=== PATIENT | male | born 1995 | race Caucasian/White ===

== ENCOUNTER 2017-09-15 17:47 | Inpatient (IN) | payer OTHER ==
[2017-09-15] MEDS ORDERED: IBUPROFEN 400 MG TAB PO (21:57)
[2017-09-15] MEDS: SOD CHLORIDE 0.9% 1,000 ML IV (22:00)
[2017-09-15] MEDS: ACETAMINOPHEN 500 MG TAB PO (23:05)
[2017-09-15] MEDS: IBUPROFEN 600 MG TAB PO (23:20)
[2017-09-15 23:42] LABS: ADD MAN DIFF? NO
[2017-09-15 23:44] LABS: WHITE BLOOD COUNT 7.9 10^3/ul (4.8-10.8)
[2017-09-15 23:44] LABS: BASOPHILS % 0.4 % (0.0-2.0); EOSINOPHILS % 0.3 % (0.0-7.0); HEMATOCRIT 36.1 % (42.0-52.0); HEMOGLOBIN 12.1 g/dl (14.0-18.0); LYMPHOCYTES # 1.1 10^3/ul (0.8-2.9); LYMPHOCYTES % 13.6 % (15.0-51.0); MEAN CORPUSCULAR HEMOGLOBIN 26.2 pg (29.0-33.0); MEAN CORPUSCULAR HGB CONC 33.5 g/dl (32.0-37.0); MEAN CORPUSCULAR VOLUME 78.3 fl (82.0-101.0); MEAN PLATELET VOLUME 9.2 fl (7.4-10.4); MONOCYTE # 0.5 10^3/ul (0.3-0.9); MONOCYTES % 6.6 % (0.0-11.0); NEUTROPHIL # 6.2 10^3/ul (1.6-7.5); NEUTROPHILS % 78.7 % (39.0-77.0); PLATELET COUNT 334 10^3/UL (140-415); RED BLOOD COUNT 4.61 10^6/ul (4.70-6.10); RED CELL DISTRIBUTION WIDTH 12.8 % (11.5-14.5)
[2017-09-16] LABS: ALANINE AMINOTRANSFERASE 123 IU/L (13-69); ALBUMIN 3.4 g/dl (3.3-4.9); ALKALINE PHOSPHATASE 103 IU/L (42-121); ANION GAP 14 (8-16); ASPARTATE AMINO TRANSFERASE 92 IU/L (15-46); BLOOD UREA NITROGEN 12 mg/dl (7-20); CALCIUM 8.6 mg/dl (8.4-10.2); CARBON DIOXIDE 25 mmol/L (21-31); CHLORIDE 99 mmol/L (97-110); GLUCOSE 94 mg/dl (70-220); LIPASE 133 U/L (23-300); POTASSIUM 3.9 mmol/L (3.5-5.1); SODIUM 134 mmol/L (135-144); TOTAL PROTEIN 7.6 g/dl (6.1-8.1)
[2017-09-16 00:01] LABS: BILIRUBIN,INDIRECT 0.3 mg/dl (0-1.1); BILIRUBIN,TOTAL 0.3 mg/dl (0.2-1.3)
[2017-09-16] MEDS: SOD CHLORIDE 0.9% 1,000 ML IV (00:17)
[2017-09-16] MEDS: LEVOFLOXACIN 750MG/D5W (PMX) 150 ML IVPB ×2 (00:24→23:35)
[2017-09-16] MEDS: KETOROLAC 30 MG INJ IV (01:26)
[2017-09-16] MEDS ORDERED: ALBUTEROL HFA 8 GM INHALER INH (02:00)
[2017-09-16] MEDS ORDERED: NACL 0.9% 3 ML SYG IV (02:00)
[2017-09-16 04:16] LABS: LACTIC ACID 0.8 mmol/L (0.5-2.0)
[2017-09-16] MEDS: SOD CHLORIDE 0.9% 500 ML IV (09:27)
[2017-09-16] MEDS ORDERED: VANCOMYCIN IV PER PHARMACY XX (11:00)
[2017-09-16] MEDS: VANCOMYCIN 1.25 GM in SOD CHLORIDE 0.9% 250 ML IVPB (13:07)
[2017-09-16] MEDS: NACL 3% FOR INHALATION 15 ML NEBU NEB (13:11)
[2017-09-16] MEDS: ACETAMINOPHEN 325 MG TAB PO (17:41)
[2017-09-16] MEDS: VANCOMYCIN 1 GM in NS 250 ML IVPB (21:49)
[2017-09-17] MEDS: VANCOMYCIN 1 GM in NS 250 ML IVPB ×2 (04:33→12:51)
[2017-09-17 05:44] LABS: ADD MAN DIFF? NO
[2017-09-17 05:49] LABS: WHITE BLOOD COUNT 7.4 10^3/ul (4.8-10.8)
[2017-09-17 05:49] LABS: BASOPHIL # 0.1 10^3/ul (0.0-0.1); BASOPHILS % 0.7 % (0.0-2.0); EOSINOPHILS # 0.1 10^3/ul (0.0-0.5); EOSINOPHILS % 0.8 % (0.0-7.0); HEMATOCRIT 36.8 % (42.0-52.0); HEMOGLOBIN 12.4 g/dl (14.0-18.0); LYMPHOCYTES # 0.7 10^3/ul (0.8-2.9); LYMPHOCYTES % 9.3 % (15.0-51.0); MEAN CORPUSCULAR HEMOGLOBIN 26.4 pg (29.0-33.0); MEAN CORPUSCULAR HGB CONC 33.7 g/dl (32.0-37.0); MEAN CORPUSCULAR VOLUME 78.3 fl (82.0-101.0); MEAN PLATELET VOLUME 9.3 fl (7.4-10.4); MONOCYTE # 0.7 10^3/ul (0.3-0.9); MONOCYTES % 9.7 % (0.0-11.0); NEUTROPHIL # 5.8 10^3/ul (1.6-7.5); PLATELET COUNT 333 10^3/UL (140-415); RED CELL DISTRIBUTION WIDTH 12.9 % (11.5-14.5)
[2017-09-17 06:53] LABS: ALANINE AMINOTRANSFERASE 98 IU/L (13-69); ALBUMIN/GLOBULIN RATIO 0.81; ALKALINE PHOSPHATASE 86 IU/L (42-121); ANION GAP 13 (8-16); ASPARTATE AMINO TRANSFERASE 70 IU/L (15-46); BILIRUBIN,INDIRECT 0.2 mg/dl (0-1.1); BILIRUBIN,TOTAL 0.2 mg/dl (0.2-1.3); BLOOD UREA NITROGEN 8 mg/dl (7-20); CALCIUM 8.6 mg/dl (8.4-10.2); CARBON DIOXIDE 27 mmol/L (21-31); CHLORIDE 102 mmol/L (97-110); CHOL/HDL RATIO 4.4 RATIO; CHOLESTEROL 112 mg/dl (100-200); CREATININE 0.98 mg/dl (0.61-1.24); GLUCOSE 93 mg/dl (70-220); HDL CHOLESTEROL 25 mg/dl (30-63); LDL CHOLESTEROL,CALCULATED 74 mg/dl; MAGNESIUM 1.5 mg/dl (1.7-2.5); POTASSIUM 4.2 mmol/L (3.5-5.1); SODIUM 138 mmol/L (135-144); TOTAL PROTEIN 6.7 g/dl (6.1-8.1); TRIGLYCERIDES 67 mg/dl (0-149)
[2017-09-17 08:24] LABS: HEMOGLOBIN A1C 5.5 % (0-5.9)
[2017-09-17] MEDS: ACETAMINOPHEN 325 MG TAB PO (08:33)
[2017-09-17] MEDS: ALBUTEROL 0.083% (NEB) 2.5 MG/3 ML AMP HHN ×4 (10:00→21:40)
[2017-09-17 12:30] LABS: HAAIG REFLEX REFLEX FILED
[2017-09-17 13:18] LABS: HEPATITIS B SURFACE ANTIGEN NEGATIVE (NEGATIVE)
[2017-09-17 13:34] LABS: ADD UMIC NO; UR ASCORBIC ACID NEGATIVE (NEGATIVE); UR BILIRUBIN (Dip) NEGATIVE (NEGATIVE); UR BLOOD (Dip) NEGATIVE (NEGATIVE); UR CLARITY CLEAR (CLEAR); UR COLOR COLORLESS (YELLOW); UR GLUCOSE (Dip) NEGATIVE (NEGATIVE); UR KETONES (Dip) NEGATIVE (NEGATIVE); UR LEUKOCYTE ESTERASE (Dip) NEGATIVE Leu/ul (NEGATIVE); UR NITRITE (Dip) NEGATIVE (NEGATIVE); UR SPECIFIC GRAVITY (Dip) 1.003 (1.003-1.030); UR TOTAL PROTEIN (Dip) NEGATIVE (NEGATIVE); UR UROBILINOGEN (Dip) NEGATIVE (NEGATIVE)
[2017-09-17 13:36] LABS: HEPATITIS B CORE ANTIBODY NEGATIVE (NEGATIVE); HEPATITIS C VIRAL ANTIBODY NEGATIVE (NEGATIVE)
[2017-09-17 13:41] LABS: HIV 1&2 ANTIBODY NEGATIVE (NEGATIVE)
[2017-09-17] MEDS: IOHEXOL 300MG/ML 150 ML BTL (14:40)
[2017-09-17] MEDS: SOD CHLORIDE 0.9% 100 ML (14:40)
[2017-09-17] MEDS: FLUCONAZOLE 200 MG/NS (PMX) 100 ML IVPB (15:39)
[2017-09-17] MEDS: VANCOMYCIN 1.25 GM in SOD CHLORIDE 0.9% 250 ML IVPB (19:55)
[2017-09-17] MEDS: NYSTATIN SUSP 5 ML CUP PO (22:18)
[2017-09-17] MEDS: LEVOFLOXACIN 750MG/D5W (PMX) 150 ML IVPB (23:16)
[2017-09-18] MEDS: ALBUTEROL 0.083% (NEB) 2.5 MG/3 ML AMP HHN ×6 (01:40→20:00)
[2017-09-18] MEDS: VANCOMYCIN 1.25 GM in SOD CHLORIDE 0.9% 250 ML IVPB ×2 (04:10→12:45)
[2017-09-18] MEDS ORDERED: FLUCONAZOLE 100 MG TAB PO (09:00)
[2017-09-18] MEDS: PYRAZINAMIDE 500 MG TAB PO (09:17)
[2017-09-18] MEDS: PYRIDOXINE 50 MG TAB PO (09:17)
[2017-09-18] MEDS: ISONIAZID 300 MG TAB PO (09:17)
[2017-09-18] MEDS: RIFABUTIN 150 MG CAP PO (09:17)
[2017-09-18] MEDS: NYSTATIN SUSP 5 ML CUP PO ×4 (09:17→20:56)
[2017-09-18] MEDS: ETHAMBUTOL 400 MG TAB PO (09:17)
[2017-09-18] MEDS: PIPER-TAZO 3.375 GM IV (PMX) 50 ML IVPB ×2 (17:30→23:59)
[2017-09-18 20:54] LABS: SITE Right Upper Forearm; TIME 2045
[2017-09-18] MEDS: LEVOFLOXACIN 750MG/D5W (PMX) 150 ML IVPB (20:55)
[2017-09-19] MEDS: ALBUTEROL 0.083% (NEB) 2.5 MG/3 ML AMP HHN ×6 (01:12→20:01)
[2017-09-19] MEDS: PIPER-TAZO 3.375 GM IV (PMX) 50 ML IVPB ×3 (05:55→17:04)
[2017-09-19 08:25] LABS: ANION GAP 17 (8-16); BLOOD UREA NITROGEN 11 mg/dl (7-20); CALCIUM 9.3 mg/dl (8.4-10.2); CARBON DIOXIDE 26 mmol/L (21-31); CHLORIDE 102 mmol/L (97-110); CREATININE 1.09 mg/dl (0.61-1.24); GLUCOSE 99 mg/dl (70-220); MAGNESIUM 1.6 mg/dl (1.7-2.5); POTASSIUM 4.3 mmol/L (3.5-5.1); SODIUM 141 mmol/L (135-144)
[2017-09-19] MEDS: ETHAMBUTOL 400 MG TAB PO (08:33)
[2017-09-19] MEDS: PYRIDOXINE 50 MG TAB PO (08:33)
[2017-09-19] MEDS: ISONIAZID 300 MG TAB PO (08:33)
[2017-09-19] MEDS: PYRAZINAMIDE 500 MG TAB PO (08:33)
[2017-09-19] MEDS: RIFABUTIN 150 MG CAP PO (08:33)
[2017-09-19] MEDS: NYSTATIN SUSP 5 ML CUP PO ×4 (08:33→20:40)
[2017-09-19 15:26] LABS: NIL 0.33 IU/mL; QUANTIFERON(R)-TB GOLD POSITIVE (NEGATIVE); TB-NIL 3.56 IU/mL
[2017-09-19] MEDS: MAGNESIUM OXIDE 400 MG TAB PO (18:57)
[2017-09-19] MEDS: LEVOFLOXACIN 750MG/D5W (PMX) 150 ML IVPB (20:40)
[2017-09-20] MEDS: PIPER-TAZO 3.375 GM IV (PMX) 50 ML IVPB ×4 (00:13→17:37)
[2017-09-20] MEDS: ALBUTEROL 0.083% (NEB) 2.5 MG/3 ML AMP HHN ×6 (00:51→20:00)
[2017-09-20 05:25] LABS: ANION GAP 16 (8-16); BLOOD UREA NITROGEN 13 mg/dl (7-20); CALCIUM 9.3 mg/dl (8.4-10.2); CARBON DIOXIDE 28 mmol/L (21-31); CHLORIDE 100 mmol/L (97-110); CREATININE 1.28 mg/dl (0.61-1.24); GLUCOSE 105 mg/dl (70-220); MAGNESIUM 1.9 mg/dl (1.7-2.5); POTASSIUM 4.5 mmol/L (3.5-5.1); SODIUM 139 mmol/L (135-144)
[2017-09-20] MEDS: RIFABUTIN 150 MG CAP PO (08:11)
[2017-09-20] MEDS: PYRIDOXINE 50 MG TAB PO (08:11)
[2017-09-20] MEDS: NYSTATIN SUSP 5 ML CUP PO ×4 (08:11→20:30)
[2017-09-20] MEDS: ISONIAZID 300 MG TAB PO (08:12)
[2017-09-20] MEDS: ETHAMBUTOL 400 MG TAB PO (08:12)
[2017-09-20] MEDS: PYRAZINAMIDE 500 MG TAB PO (08:12)
[2017-09-20 15:16] LABS: NIL 0.21 IU/mL; QUANTIFERON(R)-TB GOLD POSITIVE (NEGATIVE); TB-NIL 3.73 IU/mL
[2017-09-20] MEDS: LEVOFLOXACIN 750MG/D5W (PMX) 150 ML IVPB (20:30)
[2017-09-21] MEDS: PIPER-TAZO 3.375 GM IV (PMX) 50 ML IVPB ×5 (00:09→23:58)
[2017-09-21] MEDS: ALBUTEROL 0.083% (NEB) 2.5 MG/3 ML AMP HHN ×6 (00:59→20:00)
[2017-09-21] MEDS: ISONIAZID 300 MG TAB PO (08:48)
[2017-09-21] MEDS: NYSTATIN SUSP 5 ML CUP PO ×4 (08:48→20:48)
[2017-09-21] MEDS: LEVOFLOXACIN 750MG/D5W (PMX) 150 ML IVPB (20:48)
[2017-09-21 23:28] LABS: SEVENTY TWO HOUR READING 20 mm (0-9)
[2017-09-22] MEDS: ALBUTEROL 0.083% (NEB) 2.5 MG/3 ML AMP HHN ×6 (00:47→20:33)
[2017-09-22] MEDS: PIPER-TAZO 3.375 GM IV (PMX) 50 ML IVPB ×4 (05:26→23:55)
[2017-09-22 05:48] LABS: ADD MAN DIFF? NO
[2017-09-22 05:50] LABS: WHITE BLOOD COUNT 8.2 10^3/ul (4.8-10.8)
[2017-09-22 05:50] LABS: BASOPHIL # 0.1 10^3/ul (0.0-0.1); BASOPHILS % 0.9 % (0.0-2.0); EOSINOPHILS # 0.4 10^3/ul (0.0-0.5); EOSINOPHILS % 5.3 % (0.0-7.0); HEMATOCRIT 38.1 % (42.0-52.0); HEMOGLOBIN 12.4 g/dl (14.0-18.0); LYMPHOCYTES # 1.2 10^3/ul (0.8-2.9); LYMPHOCYTES % 14.9 % (15.0-51.0); MEAN CORPUSCULAR HEMOGLOBIN 26.4 pg (29.0-33.0); MEAN CORPUSCULAR HGB CONC 32.5 g/dl (32.0-37.0); MEAN CORPUSCULAR VOLUME 81.1 fl (82.0-101.0); MEAN PLATELET VOLUME 8.9 fl (7.4-10.4); MONOCYTE # 0.6 10^3/ul (0.3-0.9); MONOCYTES % 7.3 % (0.0-11.0); NEUTROPHIL # 5.7 10^3/ul (1.6-7.5); NEUTROPHILS % 69.7 % (39.0-77.0); PLATELET COUNT 473 10^3/UL (140-415); RED CELL DISTRIBUTION WIDTH 12.9 % (11.5-14.5)
[2017-09-22 06:05] LABS: INR 1.13; PROTIME 14.7 Sec (11.9-14.9); PT RATIO 1.1
[2017-09-22 06:06] LABS: PARTIAL THROMBOPLASTIN TIME 31.5 Sec (25.0-35.0)
[2017-09-22 06:41] LABS: ANION GAP 16 (8-16); BLOOD UREA NITROGEN 10 mg/dl (7-20); CARBON DIOXIDE 26 mmol/L (21-31); CHLORIDE 104 mmol/L (97-110); CREATININE 1.04 mg/dl (0.61-1.24); GLUCOSE 91 mg/dl (70-220); MAGNESIUM 1.8 mg/dl (1.7-2.5); PHOSPHORUS 4.1 mg/dl (2.5-4.9); SODIUM 142 mmol/L (135-144)
[2017-09-22] MEDS: PYRAZINAMIDE 500 MG TAB PO ×2 (09:00→13:13)
[2017-09-22] MEDS: ISONIAZID 300 MG TAB PO ×2 (09:00→13:12)
[2017-09-22] MEDS: PYRIDOXINE 50 MG TAB PO ×2 (09:00→13:13)
[2017-09-22] MEDS: RIFAMPIN 300 MG CAP PO ×2 (09:00→13:13)
[2017-09-22] MEDS: ETHAMBUTOL 100 MG TAB PO ×2 (09:00→13:13)
[2017-09-22] MEDS: NYSTATIN SUSP 5 ML CUP PO ×4 (09:00→20:33)
[2017-09-22] MEDS ORDERED: LIDOCAINE 1% (MPF) 30 ML INJ (09:59)
[2017-09-22] MEDS ORDERED: LIDOCAINE 2% (SDV) 5 ML INJ (10:19)
[2017-09-22] MEDS ORDERED: ROCURONIUM 50 MG INJ (10:19)
[2017-09-22] MEDS ORDERED: SUCCINYLCHOLINE CHLORIDE 100 MG/5 ML SYG IV (10:19)
[2017-09-22] MEDS ORDERED: PROPOFOL 20 ML (10:19)
[2017-09-22] MEDS ORDERED: METOCLOPRAMIDE 10 MG INJ IV (11:00)
[2017-09-22] MEDS ORDERED: ONDANSETRON 4 MG INJ IV (11:00)
[2017-09-22] MEDS ORDERED: FENTAnyl 50 MCG/ML VIAL IV ×2 (11:00)
[2017-09-22] MEDS ORDERED: DIPHENHYDRAMINE 50 MG INJ IV (11:00)
[2017-09-22] MEDS ORDERED: OXYCODONE/ACETAMINOPHEN (5/325) TAB PO ×2 (11:00)
[2017-09-22] MEDS ORDERED: MEPERIDINE 25 MG INJ IV (11:00)
[2017-09-22] MEDS ORDERED: MIDAZOLAM 1 MG/ML 2 ML INJ IV (11:00)
[2017-09-22] MEDS: FENTAnyl 50 MCG/ML VIAL IV (11:15)
[2017-09-22] MEDS: LEVOFLOXACIN 750MG/D5W (PMX) 150 ML IVPB (20:32)
[2017-09-23] MEDS: ALBUTEROL 0.083% (NEB) 2.5 MG/3 ML AMP HHN ×7 (00:33→21:00)
[2017-09-23] MEDS: PIPER-TAZO 3.375 GM IV (PMX) 50 ML IVPB ×4 (06:02→23:25)
[2017-09-23] MEDS: RIFAMPIN 300 MG CAP PO (08:47)
[2017-09-23] MEDS: PYRAZINAMIDE 500 MG TAB PO (08:47)
[2017-09-23] MEDS: PYRIDOXINE 50 MG TAB PO (08:47)
[2017-09-23] MEDS: NYSTATIN SUSP 5 ML CUP PO ×4 (08:48→21:05)
[2017-09-23] MEDS: ETHAMBUTOL 400 MG TAB PO (08:48)
[2017-09-23] MEDS: ISONIAZID 300 MG TAB PO (08:48)
[2017-09-23] MEDS: LEVOFLOXACIN 750MG/D5W (PMX) 150 ML IVPB (21:05)
[2017-09-24] MEDS: ALBUTEROL 0.083% (NEB) 2.5 MG/3 ML AMP HHN ×6 (00:46→21:10)
[2017-09-24] MEDS: PIPER-TAZO 3.375 GM IV (PMX) 50 ML IVPB ×3 (05:24→17:37)
[2017-09-24] MEDS: NYSTATIN SUSP 5 ML CUP PO ×4 (08:21→20:18)
[2017-09-24] MEDS: RIFAMPIN 300 MG CAP PO (08:21)
[2017-09-24] MEDS: ETHAMBUTOL 400 MG TAB PO (08:21)
[2017-09-24] MEDS: PYRIDOXINE 50 MG TAB PO (08:21)
[2017-09-24] MEDS: PYRAZINAMIDE 500 MG TAB PO (08:21)
[2017-09-24] MEDS: ISONIAZID 300 MG TAB PO (12:55)
[2017-09-24] MEDS: LEVOFLOXACIN 750MG/D5W (PMX) 150 ML IVPB (20:20)
[2017-09-25] MEDS: PIPER-TAZO 3.375 GM IV (PMX) 50 ML IVPB ×2 (00:31→05:11)
[2017-09-25] MEDS: ALBUTEROL 0.083% (NEB) 2.5 MG/3 ML AMP HHN ×6 (01:54→21:37)
[2017-09-25] MEDS: NYSTATIN SUSP 5 ML CUP PO ×4 (08:26→20:33)
[2017-09-25] MEDS: PYRAZINAMIDE 500 MG TAB PO (08:26)
[2017-09-25] MEDS: RIFAMPIN 300 MG CAP PO (08:26)
[2017-09-25] MEDS: PYRIDOXINE 50 MG TAB PO (08:26)
[2017-09-25] MEDS: ISONIAZID 300 MG TAB PO (08:26)
[2017-09-25] MEDS: ETHAMBUTOL 400 MG TAB PO (08:27)
[2017-09-25 18:24] LABS: FORTY EIGHT HOUR READING 0 mm (0-9)
[2017-09-26] MEDS: ALBUTEROL 0.083% (NEB) 2.5 MG/3 ML AMP HHN ×6 (01:38→20:26)
[2017-09-26] MEDS: PYRAZINAMIDE 500 MG TAB PO (08:54)
[2017-09-26] MEDS: NYSTATIN SUSP 5 ML CUP PO ×4 (08:54→21:01)
[2017-09-26] MEDS: RIFAMPIN 300 MG CAP PO (08:54)
[2017-09-26] MEDS: PYRIDOXINE 50 MG TAB PO (08:54)
[2017-09-26] MEDS: ISONIAZID 300 MG TAB PO (08:54)
[2017-09-26] MEDS: ETHAMBUTOL 400 MG TAB PO (08:56)
[2017-09-27] MEDS: ALBUTEROL 0.083% (NEB) 2.5 MG/3 ML AMP HHN ×6 (00:25→21:06)
[2017-09-27] MEDS: ONDANSETRON 4 MG TAB PO ×3 (02:23→16:51)
[2017-09-27] MEDS: RIFAMPIN 300 MG CAP PO (08:56)
[2017-09-27] MEDS: PYRIDOXINE 50 MG TAB PO (08:56)
[2017-09-27] MEDS: PYRAZINAMIDE 500 MG TAB PO (08:57)
[2017-09-27] MEDS: NYSTATIN SUSP 5 ML CUP PO ×4 (08:57→20:32)
[2017-09-27] MEDS: ETHAMBUTOL 400 MG TAB PO (08:57)
[2017-09-27] MEDS: ISONIAZID 300 MG TAB PO (08:57)
[2017-09-27 14:47] LABS: ALANINE AMINOTRANSFERASE 197 IU/L (13-69); ALKALINE PHOSPHATASE 96 IU/L (42-121); ASPARTATE AMINO TRANSFERASE 245 IU/L (15-46); BILIRUBIN,INDIRECT 0.7 mg/dl (0-1.1); BILIRUBIN,TOTAL 0.7 mg/dl (0.2-1.3); TOTAL PROTEIN 8.3 g/dl (6.1-8.1)
[2017-09-27] MEDS ORDERED: CEPASTAT LOZENGE MT (16:00)
[2017-09-28] MEDS: ALBUTEROL 0.083% (NEB) 2.5 MG/3 ML AMP HHN ×6 (01:29→21:08)
[2017-09-28 05:12] LABS: ADD MAN DIFF? NO
[2017-09-28 05:16] LABS: BASOPHIL # 0.1 10^3/ul (0.0-0.1); BASOPHILS % 1.2 % (0.0-2.0); EOSINOPHILS # 0.1 10^3/ul (0.0-0.5); HEMATOCRIT 41.8 % (42.0-52.0); HEMOGLOBIN 13.7 g/dl (14.0-18.0); LYMPHOCYTES % 12.4 % (15.0-51.0); MEAN CORPUSCULAR HEMOGLOBIN 26.1 pg (29.0-33.0); MEAN CORPUSCULAR HGB CONC 32.8 g/dl (32.0-37.0); MEAN CORPUSCULAR VOLUME 79.6 fl (82.0-101.0); MEAN PLATELET VOLUME 8.5 fl (7.4-10.4); MONOCYTE # 0.8 10^3/ul (0.3-0.9); MONOCYTES % 9.9 % (0.0-11.0); NEUTROPHIL # 6.2 10^3/ul (1.6-7.5); NEUTROPHILS % 74.1 % (39.0-77.0); PLATELET COUNT 504 10^3/UL (140-415); RED BLOOD COUNT 5.25 10^6/ul (4.70-6.10); RED CELL DISTRIBUTION WIDTH 14.1 % (11.5-14.5)
[2017-09-28 05:16] LABS: WHITE BLOOD COUNT 8.3 10^3/ul (4.8-10.8)
[2017-09-28 05:38] LABS: ALANINE AMINOTRANSFERASE 307 IU/L (13-69); ALBUMIN/GLOBULIN RATIO 0.97; ALKALINE PHOSPHATASE 94 IU/L (42-121); ANION GAP 15 (8-16); ASPARTATE AMINO TRANSFERASE 462 IU/L (15-46); BILIRUBIN,INDIRECT 0.3 mg/dl (0-1.1); BILIRUBIN,TOTAL 0.3 mg/dl (0.2-1.3); BLOOD UREA NITROGEN 10 mg/dl (7-20); CALCIUM 9.3 mg/dl (8.4-10.2); CARBON DIOXIDE 28 mmol/L (21-31); CHLORIDE 101 mmol/L (97-110); GLUCOSE 91 mg/dl (70-220); MAGNESIUM 1.7 mg/dl (1.7-2.5); POTASSIUM 4.4 mmol/L (3.5-5.1); SODIUM 140 mmol/L (135-144); TOTAL PROTEIN 8.1 g/dl (6.1-8.1)
[2017-09-28] MEDS: ISONIAZID 300 MG TAB PO ×2 (09:00→14:26)
[2017-09-28] MEDS: ETHAMBUTOL 400 MG TAB PO ×2 (09:00→14:24)
[2017-09-28] MEDS: NYSTATIN SUSP 5 ML CUP PO ×4 (09:00→21:00)
[2017-09-28] MEDS: PYRIDOXINE 50 MG TAB PO ×2 (09:00→14:27)
[2017-09-28] MEDS: PYRAZINAMIDE 500 MG TAB PO ×2 (09:00→14:23)
[2017-09-28] MEDS: RIFAMPIN 300 MG CAP PO (09:00)
[2017-09-28] MEDS: ONDANSETRON 4 MG TAB PO (12:41)
[2017-09-28] MEDS ORDERED: LEVOFLOXACIN 750 MG TABLET PO (15:00)
[2017-09-29] MEDS: ALBUTEROL 0.083% (NEB) 2.5 MG/3 ML AMP HHN ×6 (01:05→20:29)
[2017-09-29] MEDS: LEVOFLOXACIN 750 MG TABLET PO (05:39)
[2017-09-29 09:06] LABS: ADD MAN DIFF? NO
[2017-09-29] MEDS: NYSTATIN SUSP 5 ML CUP PO ×4 (09:08→20:48)
[2017-09-29] MEDS: RIFAMPIN 300 MG CAP PO (09:08)
[2017-09-29] MEDS: PYRIDOXINE 50 MG TAB PO (09:08)
[2017-09-29] MEDS: ETHAMBUTOL 400 MG TAB PO (09:09)
[2017-09-29 09:10] LABS: WHITE BLOOD COUNT 6.3 10^3/ul (4.8-10.8)
[2017-09-29 09:11] LABS: BASOPHIL # 0.1 10^3/ul (0.0-0.1); EOSINOPHILS # 0.1 10^3/ul (0.0-0.5); EOSINOPHILS % 1.4 % (0.0-7.0); HEMATOCRIT 42.6 % (42.0-52.0); HEMOGLOBIN 13.8 g/dl (14.0-18.0); LYMPHOCYTES # 0.8 10^3/ul (0.8-2.9); LYMPHOCYTES % 13.3 % (15.0-51.0); MEAN CORPUSCULAR HEMOGLOBIN 26.5 pg (29.0-33.0); MEAN CORPUSCULAR HGB CONC 32.4 g/dl (32.0-37.0); MEAN CORPUSCULAR VOLUME 81.8 fl (82.0-101.0); MEAN PLATELET VOLUME 8.8 fl (7.4-10.4); MONOCYTE # 0.7 10^3/ul (0.3-0.9); MONOCYTES % 10.3 % (0.0-11.0); NEUTROPHIL # 4.6 10^3/ul (1.6-7.5); NEUTROPHILS % 72.6 % (39.0-77.0); PLATELET COUNT 469 10^3/UL (140-415); RED BLOOD COUNT 5.21 10^6/ul (4.70-6.10); RED CELL DISTRIBUTION WIDTH 14.4 % (11.5-14.5)
[2017-09-29 09:28] LABS: ALANINE AMINOTRANSFERASE 556 IU/L (13-69); ALBUMIN/GLOBULIN RATIO 0.97; ALKALINE PHOSPHATASE 132 IU/L (42-121); ANION GAP 15 (8-16); ASPARTATE AMINO TRANSFERASE 692 IU/L (15-46); BILIRUBIN,INDIRECT 0.1 mg/dl (0-1.1); BILIRUBIN,TOTAL 0.1 mg/dl (0.2-1.3); BLOOD UREA NITROGEN 9 mg/dl (7-20); CALCIUM 9.3 mg/dl (8.4-10.2); CARBON DIOXIDE 30 mmol/L (21-31); CHLORIDE 99 mmol/L (97-110); CREATININE 0.95 mg/dl (0.61-1.24); GLUCOSE 84 mg/dl (70-220); MAGNESIUM 1.8 mg/dl (1.7-2.5); POTASSIUM 4.3 mmol/L (3.5-5.1); SODIUM 140 mmol/L (135-144); TOTAL PROTEIN 8.1 g/dl (6.1-8.1)
[2017-09-30] MEDS: ALBUTEROL 0.083% (NEB) 2.5 MG/3 ML AMP HHN ×6 (00:57→21:45)
[2017-09-30 05:28] LABS: ADD MAN DIFF? NO
[2017-09-30 05:45] LABS: BASOPHIL # 0.1 10^3/ul (0.0-0.1); BASOPHILS % 0.8 % (0.0-2.0); EOSINOPHILS # 0.1 10^3/ul (0.0-0.5); EOSINOPHILS % 0.9 % (0.0-7.0); HEMATOCRIT 40.9 % (42.0-52.0); HEMOGLOBIN 13.2 g/dl (14.0-18.0); LYMPHOCYTES # 0.9 10^3/ul (0.8-2.9); LYMPHOCYTES % 13.3 % (15.0-51.0); MEAN CORPUSCULAR HEMOGLOBIN 25.9 pg (29.0-33.0); MEAN CORPUSCULAR HGB CONC 32.3 g/dl (32.0-37.0); MEAN CORPUSCULAR VOLUME 80.4 fl (82.0-101.0); MONOCYTE # 0.6 10^3/ul (0.3-0.9); NEUTROPHIL # 4.9 10^3/ul (1.6-7.5); NEUTROPHILS % 75.4 % (39.0-77.0); PLATELET COUNT 421 10^3/UL (140-415); RED BLOOD COUNT 5.09 10^6/ul (4.70-6.10); RED CELL DISTRIBUTION WIDTH 14.5 % (11.5-14.5)
[2017-09-30 05:45] LABS: WHITE BLOOD COUNT 6.5 10^3/ul (4.8-10.8)
[2017-09-30] MEDS: LEVOFLOXACIN 750 MG TABLET PO (06:03)
[2017-09-30 06:43] LABS: ALANINE AMINOTRANSFERASE 541 IU/L (13-69); ALBUMIN 3.8 g/dl (3.3-4.9); ALBUMIN/GLOBULIN RATIO 0.95; ALKALINE PHOSPHATASE 134 IU/L (42-121); ANION GAP 14 (8-16); ASPARTATE AMINO TRANSFERASE 359 IU/L (15-46); BILIRUBIN,INDIRECT 0.3 mg/dl (0-1.1); BILIRUBIN,TOTAL 0.3 mg/dl (0.2-1.3); BLOOD UREA NITROGEN 8 mg/dl (7-20); CALCIUM 9.2 mg/dl (8.4-10.2); CARBON DIOXIDE 28 mmol/L (21-31); CHLORIDE 101 mmol/L (97-110); CREATININE 1.02 mg/dl (0.61-1.24); GLUCOSE 91 mg/dl (70-220); MAGNESIUM 1.6 mg/dl (1.7-2.5); SODIUM 139 mmol/L (135-144); TOTAL PROTEIN 7.8 g/dl (6.1-8.1)
[2017-09-30] MEDS: NYSTATIN SUSP 5 ML CUP PO ×4 (09:22→21:24)
[2017-09-30] MEDS: RIFAMPIN 300 MG CAP PO (09:23)
[2017-09-30] MEDS: PYRIDOXINE 50 MG TAB PO (09:23)
[2017-09-30] MEDS: ETHAMBUTOL 400 MG TAB PO (09:23)
[2017-09-30] MEDS: MAGNESIUM OXIDE 400 MG TAB PO (14:15)
[2017-10-01] MEDS: ALBUTEROL 0.083% (NEB) 2.5 MG/3 ML AMP HHN ×3 (01:17→08:14)
[2017-10-01] MEDS: LEVOFLOXACIN 750 MG TABLET PO (06:04)
[2017-10-01 07:17] LABS: ALANINE AMINOTRANSFERASE 440 IU/L (13-69); ALBUMIN 3.5 g/dl (3.3-4.9); ALBUMIN/GLOBULIN RATIO 0.94; ALKALINE PHOSPHATASE 143 IU/L (42-121); ANION GAP 13 (8-16); ASPARTATE AMINO TRANSFERASE 220 IU/L (15-46); BILIRUBIN,INDIRECT 0.1 mg/dl (0-1.1); BILIRUBIN,TOTAL 0.1 mg/dl (0.2-1.3); BLOOD UREA NITROGEN 10 mg/dl (7-20); CALCIUM 8.7 mg/dl (8.4-10.2); CARBON DIOXIDE 29 mmol/L (21-31); CHLORIDE 103 mmol/L (97-110); CREATININE 0.92 mg/dl (0.61-1.24); GLUCOSE 96 mg/dl (70-220); MAGNESIUM 1.8 mg/dl (1.7-2.5); POTASSIUM 3.5 mmol/L (3.5-5.1); SODIUM 141 mmol/L (135-144); TOTAL PROTEIN 7.2 g/dl (6.1-8.1)
[2017-10-01] MEDS: ETHAMBUTOL 400 MG TAB PO (08:34)
[2017-10-01] MEDS: NYSTATIN SUSP 5 ML CUP PO ×4 (08:34→20:28)
[2017-10-01] MEDS: RIFAMPIN 300 MG CAP PO (08:34)
[2017-10-01] MEDS: PYRIDOXINE 50 MG TAB PO (08:34)
[2017-10-01] MEDS ORDERED: ALBUTEROL 0.083% (NEB) 2.5 MG/3 ML AMP HHN (10:30)
[2017-10-02] MEDS: LEVOFLOXACIN 750 MG TABLET PO (06:24)
[2017-10-02 08:04] LABS: ALANINE AMINOTRANSFERASE 398 IU/L (13-69); ALBUMIN 3.8 g/dl (3.3-4.9); ALBUMIN/GLOBULIN RATIO 0.97; ALKALINE PHOSPHATASE 139 IU/L (42-121); ANION GAP 14 (8-16); ASPARTATE AMINO TRANSFERASE 172 IU/L (15-46); BLOOD UREA NITROGEN 9 mg/dl (7-20); CARBON DIOXIDE 29 mmol/L (21-31); CHLORIDE 103 mmol/L (97-110); CREATININE 1.01 mg/dl (0.61-1.24); GLUCOSE 94 mg/dl (70-220); MAGNESIUM 1.6 mg/dl (1.7-2.5); SODIUM 142 mmol/L (135-144); TOTAL PROTEIN 7.7 g/dl (6.1-8.1)
[2017-10-02] MEDS: ETHAMBUTOL 400 MG TAB PO (09:52)
[2017-10-02] MEDS: NYSTATIN SUSP 5 ML CUP PO ×4 (09:52→21:17)
[2017-10-02] MEDS: PYRIDOXINE 50 MG TAB PO (09:53)
[2017-10-02] MEDS: RIFAMPIN 300 MG CAP PO (09:53)
[2017-10-02] MEDS: MAGNESIUM OXIDE 400 MG TAB PO (14:36)
[2017-10-03 06:09] LABS: ALANINE AMINOTRANSFERASE 349 IU/L (13-69); ALBUMIN 3.7 g/dl (3.3-4.9); ALKALINE PHOSPHATASE 134 IU/L (42-121); ANION GAP 15 (8-16); ASPARTATE AMINO TRANSFERASE 137 IU/L (15-46); BLOOD UREA NITROGEN 9 mg/dl (7-20); CALCIUM 9.7 mg/dl (8.4-10.2); CARBON DIOXIDE 32 mmol/L (21-31); CHLORIDE 101 mmol/L (97-110); CREATININE 1.02 mg/dl (0.61-1.24); GLUCOSE 91 mg/dl (70-220); MAGNESIUM 1.8 mg/dl (1.7-2.5); POTASSIUM 4.3 mmol/L (3.5-5.1); SODIUM 144 mmol/L (135-144); TOTAL PROTEIN 7.8 g/dl (6.1-8.1)
[2017-10-03] MEDS: LEVOFLOXACIN 750 MG TABLET PO (06:37)
[2017-10-03] MEDS: ETHAMBUTOL 400 MG TAB PO (08:46)
[2017-10-03] MEDS: RIFAMPIN 300 MG CAP PO (08:49)
[2017-10-03] MEDS: NYSTATIN SUSP 5 ML CUP PO ×4 (08:49→21:17)
[2017-10-03] MEDS: PYRIDOXINE 50 MG TAB PO (08:49)
[2017-10-04] MEDS: LEVOFLOXACIN 750 MG TABLET PO (06:00)
[2017-10-04] MEDS: NYSTATIN SUSP 5 ML CUP PO ×4 (08:49→20:04)
[2017-10-04] MEDS: ETHAMBUTOL 400 MG TAB PO (08:50)
[2017-10-04] MEDS: PYRIDOXINE 50 MG TAB PO (08:50)
[2017-10-04] MEDS: RIFAMPIN 300 MG CAP PO (08:50)
[2017-10-05] MEDS: LEVOFLOXACIN 750 MG TABLET PO (05:43)
[2017-10-05] MEDS: ETHAMBUTOL 400 MG TAB PO (09:36)
[2017-10-05] MEDS: RIFAMPIN 300 MG CAP PO (09:37)
[2017-10-05] MEDS: PYRIDOXINE 50 MG TAB PO (09:37)
[2017-10-05] MEDS: NYSTATIN SUSP 5 ML CUP PO ×4 (09:37→20:38)
[2017-10-06] MEDS: LEVOFLOXACIN 750 MG TABLET PO (05:36)
[2017-10-06 06:13] LABS: MAGNESIUM 1.7 mg/dl (1.7-2.5)
[2017-10-06 06:13] LABS: PHOSPHORUS 5.3 mg/dl (2.5-4.9)
[2017-10-06 06:16] LABS: ALANINE AMINOTRANSFERASE 242 IU/L (13-69); ALBUMIN 3.7 g/dl (3.3-4.9); ALBUMIN/GLOBULIN RATIO 0.97; ALKALINE PHOSPHATASE 132 IU/L (42-121); ANION GAP 15 (8-16); ASPARTATE AMINO TRANSFERASE 141 IU/L (15-46); BLOOD UREA NITROGEN 10 mg/dl (7-20); CALCIUM 8.9 mg/dl (8.4-10.2); CARBON DIOXIDE 29 mmol/L (21-31); CHLORIDE 104 mmol/L (97-110); CREATININE 1.04 mg/dl (0.61-1.24); GLUCOSE 88 mg/dl (70-220); POTASSIUM 4.2 mmol/L (3.5-5.1); SODIUM 144 mmol/L (135-144); TOTAL PROTEIN 7.5 g/dl (6.1-8.1)
[2017-10-06] MEDS: PYRIDOXINE 50 MG TAB PO (08:28)
[2017-10-06] MEDS: RIFAMPIN 300 MG CAP PO (08:28)
[2017-10-06] MEDS: ETHAMBUTOL 400 MG TAB PO (08:28)
[2017-10-06] MEDS: NYSTATIN SUSP 5 ML CUP PO ×4 (08:29→20:14)
[2017-10-07] MEDS: LEVOFLOXACIN 750 MG TABLET PO (05:40)
[2017-10-07] MEDS: RIFAMPIN 300 MG CAP PO (08:42)
[2017-10-07] MEDS: NYSTATIN SUSP 5 ML CUP PO ×4 (08:42→21:41)
[2017-10-07] MEDS: PYRIDOXINE 50 MG TAB PO (08:42)
[2017-10-07] MEDS: ETHAMBUTOL 400 MG TAB PO (08:43)
[2017-10-08] MEDS: LEVOFLOXACIN 750 MG TABLET PO (06:05)
[2017-10-08] MEDS: NYSTATIN SUSP 5 ML CUP PO ×2 (09:39→13:00)
[2017-10-08] MEDS: PYRIDOXINE 50 MG TAB PO (09:39)
[2017-10-08] MEDS: RIFAMPIN 300 MG CAP PO (09:40)
[2017-10-08] MEDS: ETHAMBUTOL 400 MG TAB PO (09:40)
[2017-10-09] MEDS: LEVOFLOXACIN 750 MG TABLET PO (05:55)
[2017-10-09] MEDS: RIFAMPIN 300 MG CAP PO (09:44)
[2017-10-09] MEDS: PYRIDOXINE 50 MG TAB PO (09:45)
[2017-10-09] MEDS: ETHAMBUTOL 400 MG TAB PO (09:45)
== END 2017-10-09 17:00 | disposition home or self-care (01) | DRG 854 ==
LOC: FTE 17:47 → PP2 09-16 01:38
PROC: 0B9C8ZX Drainage of Right Upper Lung Lobe, Via Natural or Artificial Opening Endoscopic, Diagnostic (ICD-10-PCS; principal; 2017-09-22 10:00)
DX: A41.9 Sepsis, unspecified organism (principal); A15.0 Tuberculosis of lung; B37.0 Candidal stomatitis; J45.909 Unspecified asthma, uncomplicated; R74.0 Nonspecific elevation of levels of transaminase and lactic acid dehydrogenase [LDH]; T36.8X5A Adverse effect of other systemic antibiotics, initial encounter; T37.1X5A Adverse effect of antimycobacterial drugs, initial encounter; Y92.238 Other place in hospital as the place of occurrence of the external cause
CPT/HCPCS: 36415; 71010; 71020; 71260; 76700; 80048; 80053; 80061; 80076; 80202; 81003; 82248; 83036; 83605; 83690; 83735; 84100; 84443; 85025; 85610; 85730; 86480; 86580; 86635; 86703; 86704; 86709; 86713; 86738; 86803; 87040; 87070; 87077; 87081; 87102; 87116; 87340; 87400; 87449; 87536; 87556; 87880; 94640; 94644; 96361; 96365; 96366; 96367; 99285-25

== ENCOUNTER 2018-02-15 12:17 | Emergency (ER) | payer OTHER ==
[2018-02-15 13:20] LABS: ADD MAN DIFF? NO
[2018-02-15 13:22] LABS: WHITE BLOOD COUNT 3.5 10^3/ul (4.8-10.8)
[2018-02-15 13:22] LABS: BASOPHILS % 0.6 % (0.0-2.0); EOSINOPHILS # 0.1 10^3/ul (0.0-0.5); EOSINOPHILS % 2.6 % (0.0-7.0); HEMATOCRIT 42.5 % (42.0-52.0); HEMOGLOBIN 14.3 g/dl (14.0-18.0); LYMPHOCYTES # 0.9 10^3/ul (0.8-2.9); LYMPHOCYTES % 27.2 % (15.0-51.0); MEAN CORPUSCULAR HEMOGLOBIN 28.1 pg (29.0-33.0); MEAN CORPUSCULAR HGB CONC 33.6 g/dl (32.0-37.0); MEAN CORPUSCULAR VOLUME 83.5 fl (82.0-101.0); MEAN PLATELET VOLUME 9.5 fl (7.4-10.4); MONOCYTE # 0.3 10^3/ul (0.3-0.9); MONOCYTES % 8.1 % (0.0-11.0); NEUTROPHIL # 2.1 10^3/ul (1.6-7.5); NEUTROPHILS % 61.2 % (39.0-77.0); PLATELET COUNT 261 10^3/UL (140-415); RED BLOOD COUNT 5.09 10^6/ul (4.70-6.10); RED CELL DISTRIBUTION WIDTH 13.3 % (11.5-14.5)
[2018-02-15 13:40] LABS: ALANINE AMINOTRANSFERASE 181 IU/L (13-69); ALBUMIN 4.5 g/dl (3.3-4.9); ALBUMIN/GLOBULIN RATIO 1.15; ALKALINE PHOSPHATASE 75 IU/L (42-121); ANION GAP 14 (8-16); ASPARTATE AMINO TRANSFERASE 489 IU/L (15-46); BILIRUBIN,INDIRECT 0.4 mg/dl (0-1.1); BILIRUBIN,TOTAL 0.4 mg/dl (0.2-1.3); BLOOD UREA NITROGEN 15 mg/dl (7-20); CALCIUM 9.4 mg/dl (8.4-10.2); CARBON DIOXIDE 31 mmol/L (21-31); CHLORIDE 105 mmol/L (97-110); CREATININE 1.02 mg/dl (0.61-1.24); GLUCOSE 62 mg/dl (70-220); POTASSIUM 4.3 mmol/L (3.5-5.1); SODIUM 146 mmol/L (135-144); TOTAL PROTEIN 8.4 g/dl (6.1-8.1)
== END 2018-02-15 15:27 | disposition home or self-care (01) ==
LOC: FTE 12:17
DX: R94.5 Abnormal results of liver function studies (principal); J45.909 Unspecified asthma, uncomplicated; Z86.11 Personal history of tuberculosis
CPT/HCPCS: 76705; 80053; 85025; 99284-25